=== PATIENT | male | born 1985 | race Caucasian/White ===

== ENCOUNTER 2019-01-29 04:46 | Emergency (ER) | payer SELFPAY ==
[~2019-01-29] VITALS: Ht 185.4 cm; Wt 84.5 kg
[~2019-01-29 04:46] MED LIST: CEPH-443 PO; IBUP-1542 PO; IBUP800T48 PO
[2019-01-29 04:52] VITALS: BP 147/90; PULSE 108; RESP 20; Ht 185.4 cm; Wt 84.5 kg
[2019-01-29] MEDS ORDERED: KETOROLAC 15 MG INJ IM STA (07:11)
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
[2019-01-29] MEDS ORDERED: IBUP-1542 PO (07:16)
[2019-01-29] MEDS ORDERED: METOCLOPRAMIDE 10 MG TAB PO ONE (07:30)
== END 2019-01-29 08:09 | disposition home or self-care (01) ==
LOC: E/R 04:46
DX: S09.90XA Unspecified injury of head, initial encounter (principal); F19.10 Other psychoactive substance abuse, uncomplicated; R51 Headache; V67.5XXA Driver of heavy transport vehicle injured in collision with fixed or stationary object in traffic accident, initial encounter
CPT/HCPCS: 70450